=== PATIENT | female | born 1970 | race Caucasian/White ===

== ENCOUNTER 2020-04-16 06:49 | Outpatient (NON) | payer BC, SELFPAY ==
[2020-04-17 18:20] LABS: SARS-CoV-2 RNA PCR Negative
== END 2020-04-16 06:50 ==
PROVIDERS: PCP Internal Medicine; Visit Provider Nurse Practitioner
DX: Z20.828 Contact with and (suspected) exposure to other viral communicable diseases (principal); R05 Cough
CPT/HCPCS: 87635; C9803; U0003

== ENCOUNTER 2021-07-21 20:39 | Emergency (ER) | payer BC, SELFPAY ==
--- NOTE | ~2021-07-21 | CT_ITS ---
EXAMINATION: CT abdomen pelvis w con DATE: 07/21/2021 22:07 INDICATION: Epigastric discomfort. TECHNIQUE: Computed tomography (CT) of the abdomen and pelvis was performed with 100 mL Omnipaque 350 intravenous contrast. Automated exposure control and iterative reconstruction technique were employe d. The dose-length product was 854.43 mGy-cm. COMPARISON: CT abdomen and pelvis 09/05/2018 FINDINGS: The visualized portions of the lung bases demonstrate emphysema and mild atelectasis. No pl eural effusion. The heart size is normal. No pericardial effusion. There is a small sliding hiatal he rnia. There is a 4 mm cyst in the liver. There are changes of cholecystectomy. The spleen, pancreas, adrenal glands, and left kidney are normal. There is a 4 mm cyst in right kidney. There is an intraut erine device in expected position. There is diverticulosis of the colon without evidence of diverticu litis. There are no dilated loops of bowel. The appendix is normal. There are no pathologically enlar ged lymph nodes. There is no free intraperitoneal fluid. There is mild thoracolumbar spondylosis. The re is a benign bone island in T11 vertebral body. IMPRESSION: 1. Small sliding hiatal hernia. 2. Emphysema. Reviewed, dictated and finalized at location [facility]. [employer]
[2021-07-21 20:52] VITALS: BP 101/52; PULSE 82; RESP 18; TEMP 36.7; O2SAT 95
[2021-07-21 21:20] LABS: Basophils Percent Auto 0.4 % (0.2-1.2); Eosinophils Absolute Auto 0.1 K/mm3 (0-0.3); Eosinophils Percent Auto 1.3 % (0-4.4); Hematocrit 42.3 % (37.0-47.0); Hemoglobin 14.2 g/dL (12.0-15.0); Immature Granulocyte Absolute 0.05 K/mm3 (0.00-0.031); Immature Granulocyte Percent A 0.5 % (0-0.5); Lymphocytes Absolute Auto 0.97 K/mm3 (0.9-3.2); Lymphocytes Percent Auto 9.3 % (18.3-44.2); Mean Corpuscular HGB Conc 33.6 g/dl (32-36); Mean Corpuscular Hemoglobin 30.3 pg (26-34); Mean Corpuscular Volume 90.4 fl (80-100); Mean Platelet Volume 9.5 fl (7.4-10.4); Monocytes Absolute Auto 0.5 K/mm3 (0.1-0.6); Monocytes Percent Auto 4.4 % (2.6-8.5); Neutrophils Absolute Auto 8.8 K/mm3 (1.3-6.7); Neutrophils Percent Auto 84.1 % (45.5-73.1); Platelet Count Result 247 k/mm3 (150-375); Red Blood Count 4.68 M/mm3 (4.2-5.4); Red Cell Distribution Width 13.4 % (11.5-14.5); White Blood Count 10.5 K/mm3 (4.5-10.0)
[2021-07-21 21:34] LABS: Alanine Aminotransferase 17 U/L (4-35); Alkaline Phosphatase 71 U/L (38-126); Anion Gap 5 mmol/L (8-16); Aspartate Amino Transferase 22 U/L (14-36); Bilirubin,Total 0.8 mg/dL (0.2-1.3); Blood Urea Nitrogen 14 mg/dL (7-17); Calcium 8.9 mg/dL (8.4-10.2); Carbon Dioxide 23 mmol/L (22-30); Chloride 107 mmol/L (98-107); Estimated CRCL calculation 111 ml/min; Estimated Glomerular Filt Rate > 60; Glucose 111 mg/dL (65-110); Lipase 73 U/L (23-300); Potassium 3.8 mmol/L (3.4-5.0); Sodium 135 mmol/L (137-145)
[2021-07-21 21:50] LABS: Add Urine Microscopic? YES; Appearance Urine Clear (Clear); Bacteria Urine Trace /hpf; Bilirubin Urine Negative (Negative); Blood Urine Negative (Negative); Color Urine Yellow (Yellow); Glucose Urine UA Negative (Negative); Ketones Urine Negative (Negative); Leukocyte Esterase Ur Negative LEU/UL (Negative); Mucus Urine Rare /lpf; Nitrate Urine Negative (Negative); Protein Urine 1+ mg/dL (Negative); Specific Grav Ur 1.024 (1.001-1.035); Squamous Epithelial Cell Urine Occasional /hpf (Few); WBC Urine 0-3 /hpf
--- NOTE | 2021-07-21 21:53 | ED.GENADULT ---
HPI - General Adult General Chief complaint: Nausea/Vomiting/Diarrhea Stated complaint: N/V, sore throat, back pain this afternoon Time Seen by Provider: 07/21/21 21:30 Source: patient and RN notes reviewed History of Present Illness HPI narrative: Patient is a 50 y/o female complaining of intermittent epigastric pain today. She describes her pain as pins and needles and rates it as 7/10. Her pain is intermittent and radiates to her back. She also has acid going up to her throat. Related Data Home Medications Medication Instructions Recorded Confirmed No Home Medications 07/21/21 07/21/21 Allergies Allergy/AdvReac Type Severity Reaction Status Date / Time Penicillins Allergy Unknown Rash Verified 07/21/21 20:55 Sulfa (Sulfonamide Allergy Unknown Hives Verified 07/21/21 20:55 Antibiotics) Review of Systems Constitutional: Constitutional: Denies chills, Denies fever(s), Denies headache(s) and Denies weakness Eyes: Eyes: Denies blurry vision ENT: Denies headache(s) and Denies neck pain Cardiovascular: Cardiovascular: Denies chest pain and Denies dyspnea Respiratory: Respiratory: Denies cough and Denies dyspnea Gastrointestinal: Gastrointestinal: Reports abdominal pain, Denies diarrhea, Reports nausea and Reports vomiting Genitourinary: Genitourinary: Denies hematuria and Denies dysuria Musculoskeletal: Musculoskeletal: Reports back pain and Denies neck pain Neurologic: Denies headache(s) and Denies weakness PMF Past Medical History Medical History HTN (hypertension) Leukocytosis Murmur Surgical History Surgical History History of cholecystectomy Family History Family History Father Hypertension Heart problem Mother Hypotension Social History Social History Smoking packs per day: 1 Smoking cigarettes per day: 20.0 Smoking status: Heavy tobacco smoker Alcohol intake: current Alcohol use details: occasionally Exam Const: General: no acute distress and well developed Orientation/consciousness: oriented to person, oriented to place, oriented to time and patient oriented x3 HENMT: Head: normocephalic Ears: external ears normal General nose exam: Normal external nose present Eyes: General: appearance normal, both eyes and all related structures Conjunctivae: conjunctivae normal Neck: Neck: normal visual inspection and full ROM Chest: Chest palpation & inspection: normal inspection of the chest and no tenderness Resp: Effort & Inspection: normal respiratory effort Auscultation: clear to auscultation bilaterally Cardio: Rate: regular rate Rhythm: regular rhythm GI: GI Palp: No abdominal tenderness and Yes Soft to palpation Skin: General skin exam: normal color and turgor normal Neuro: General: oriented to person, oriented to place, oriented to time and patient oriented x3 Cognition (Neuro): normal cognition Extrem: General: normal to inspection, full ROM and no pedal edema Psych: Appearance: grossly normal Mental Status: mental status grossly normal Affect: normal affect Course Vital Signs Vital signs: Vital Signs Temperature 36.7 C 07/21/21 20:52 Pulse Rate 82 07/21/21 20:52 Respiratory Rate 18 07/21/21 20:52 Blood Pressure 101/52 L 07/21/21 20:52 Pulse Oximetry 95 07/21/21 20:52 Temperature 36.7 C 07/21/21 20:52 Pulse Rate 91 07/22/21 01:13 Respiratory Rate 15 07/22/21 01:13 Blood Pressure 107/71 07/22/21 01:13 Pulse Oximetry 98 07/22/21 01:13 Medical Decision Making Vital Signs Vital Signs: Vital Signs Temperature 36.7 C 07/21/21 20:52 Pulse Rate 82 07/21/21 20:52 Respiratory Rate 18 07/21/21 20:52 Blood Pressure 101/52 L 07/21/21 20:52 Pulse Oximetry 95 07/21/21 20:52 Temperat
[2021-07-21] MEDS: BELLADONNA ALK/PHENOB ELIX 10 ML, MAG HYDROX/ALUMINUM HYD/SIMETH 30 ML, LIDOCAINE HCL 2... PO (22:07)
[2021-07-21] MEDS: ONDANSETRON INJ 4 MG/2 ML VIAL IV PUSH (22:07)
[2021-07-21 22:38] VITALS: BP 105/66; PULSE 80; RESP 15; O2SAT 99
[2021-07-21 23:40] LABS: Troponin I < 0.012 ng/mL (0.000-0.034)
[2021-07-22 00:05] VITALS: BP 106/63; PULSE 97; RESP 17; O2SAT 94
[2021-07-22 00:50] LABS: Troponin I < 0.012 ng/mL (0.000-0.034)
[2021-07-22 01:13] VITALS: BP 107/71; PULSE 91; RESP 15; O2SAT 98
== END 2021-07-22 01:15 | disposition home or self-care (01) ==
PROVIDERS: Emergency Medicine; Emergency Provider Emergency Medicine; PCP Student in an Organized Health Care Education/Training Program
DX: K21.9 Gastro-esophageal reflux disease without esophagitis (principal); R10.13 Epigastric pain; I10 Essential (primary) hypertension; F17.210 Nicotine dependence, cigarettes, uncomplicated
CPT/HCPCS: 36415; 74177; 80053; 81001; 81025; 83690; 84484; 85025; 96374; 99284; A9270; J2405; Q9967